=== PATIENT | female | born 1965 | race Caucasian/White ===

== ENCOUNTER → 2017-12-15 | Outpatient (CLI) | payer BC | LOC: FIMAGING 08:43 | PROVIDERS: ATTEND Internal Medicine | DX: Z12.31 Encounter for screening mammogram for malignant neoplasm of breast (principal); Z80.3 Family history of malignant neoplasm of breast ==

== ENCOUNTER → 2018-06-26 | Outpatient (CLI) | payer BC | LOC: BMCIMAGING 08:06 | PROVIDERS: ATTEND Nurse Practitioner Adult Health | DX: S99.912A Unspecified injury of left ankle, initial encounter (principal) ==

== ENCOUNTER → 2018-12-16 | Outpatient (CLI) | payer BC | LOC: FIMAGING 09:46 | PROVIDERS: ATTEND Internal Medicine | DX: Z12.31 Encounter for screening mammogram for malignant neoplasm of breast (principal); Z80.3 Family history of malignant neoplasm of breast ==